=== PATIENT | female | born 1980 | race Caucasian/White ===

== ENCOUNTER 2024-11-13 15:02 | Outpatient (AMB) | payer BC, SELFPAY ==
--- NOTE | 2024-11-13 15:15 | GYNCLNT_ITS ---
"Vital Signs 11/13/24 15:16 Height 1.7 m Height Method Stated Weight 66.395 kg Weight Measurement Method Standing Scale BMI 22.9 BP 111/71 Blood Pressure Source Automatic Cuff Blood Pressure Location Left Upper Arm Position Sitting Respiration 18 Pulse 91 Pulse Source Monitor Temp 96.7 F L Temp Source Oral Pulse Oximetry (%) 98 Oxygen Delivery Method Room Air Allergies/Home Meds Allergies & Medications Allergies No Known Allergies Allergy (Verified 11/13/24 15:17) Medication Reconciliation clomiphene citrate 50 mg tablet (Clomid) 150 mg (3 x 50 mg) PO QDAY 5 days #15 tabs 11/13/24 [Rx] Intake Visit Data Collection New Patient or Established: Established Patient (seen at 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 Cohen Other Relevant History: Difficulty achieving / unknown infertility. Her one successful was due to Clomid/IUI Has had an extensive work up with [facility] CARLOS including normal HSG and Semen analysis. Did not try IVF Seasonal allergies Questionnaires Covid-19 Vaccine Questionnaire Has patient been vacinated for Covid-19 Have you been vacinated for Covid-19: Yes PHQ-9 PHQ-2 Over the last 2 weeks, how often have you been bothered by any of the following problems? 1. Little interest or pleasure in doing things: not at all 2. Feeling down, depressed, or hopeless: not at all Total score: 0 PHQ-9 3. Trouble falling or staying asleep, or sleeping too much: Not at all 4. Feeling tired or having little energy: Not at all 5. Poor appetite or overeating: Not at all 6. Feeling bad about yourself - or that you are a failure or have let yourself or your family down: Not at all 7. Trouble concentrating on things, such as reading the newspaper or watching television: Not at all 8. Moving or speaking so slowly that other people could have noticed? - Or the opposite - being so fidgety or restless that you have been moving around a lot more than usual: not at all 9. Thoughts that you would be better off or of hurting yourself in some way: Not at all Total score: 0 If you checked off any problems, how difficult have these problems made it for you to do your work, take care of things at home, or get along with other people?: not difficult at all Source: Developed by Drs. Liu Talley, Melani Calderon, Roman Duong and colleagues, with an educational anna from [employer]. Depression screen completed yes Social History Living Situation History Marital Status: Lives With: Family Housing: House Housing Other:: Son Gio turning 5. medically retired. Pt works [employer] Tobacco History Smoking Status: Never smoker Second Hand Smoke Exposure: No Alcohol History Alcohol Intake: Current Domestic Abuse History Do You Feel Safe at Home: Yes History of Present Illness HPI Narrative The patient is a 44 y/o who used to see me in [place] who presents for an annual exam. She did not release her medical records to me yet. She has regular menses and no hot flashes or night sweats. She would love to have another baby. They have had difficulty achieving and their son was the result of Clomid/IUI vs injectables/IUI. She has seen many infertility specialists in the past, most recently Dr. Ashok Cohen in the [facility] who did a complete work up and a hysteroscopic septoplasty for a bicornuate uterus. This was after her son was born. Of note, he was full term, just breech. She is willi ng to try Clomid again but does not want to go as far as IVF. Menstrual character: normal Gynecologic pain symptoms: Reports none Menopause concerns/symptoms: Reports none Other pertinent information: Would like to try for Review of Systems Review of Systems Narrative Review of Systems: Normal menses monthly, no hot flashes, night sweats. No pelvic pain or abnormal discharge. No incontinence. Exam General General Appearance: alert, in no apparent distress, comfortable, cooperative, healthy appearing, well developed and well groomed Neck Neck exam: Present normal inspection, full ROM and trachea midline Chest Chest inspection: Present normal inspection and symmetric chest wall rise Exp Chest Breast: bilateral: other (Normal breast exam bilaterally) Resp Respiratory exam: Present normal lung sounds bilaterally Card Cardiovascular exam: Present regular rate, normal rhythm and normal heart sounds Abdominal Abdominal exam: Present soft, normal bowel sounds and scar (well healed pfannenstiel scar) External exam: Present normal external exam Speculum exam: Present normal speculum exam Bimanual exam: Present normal bimanual exam and other (retroverted) Extremities Extremities exam: Present normal inspection and full ROM Psych Psychiatric exam: Present normal affect and normal mood Skin Skin exam: Present warm, dry, intact and normal color Office Procedures OB Clinic LOC & Office Proc's Nursing/Assessment Patient Status: Initial/New Patient OB Clinic Nursing Assessment: Medication Reconciliation, Update PMH in EMR and Vital Signs OB Clinic Coordination of Care: Consent,records obtained, informed consent, Education Simp Pt/Fam and Staff clarify orders Miscellaneous Interventions: Pelvic/Pap Smear Set up New Patient Charge New Patient Point Assignment: 1079 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 Breast exam done and encouraged. She just had a mommogram and has a colonoscopy scheduled all done by her primary care. (2) Infertility associated with anovulation: Status: Acute Assessment and Plan: Check an US. Trial of Clomid 150 mg PO days 3-7. DEAN OF FACULTY: Papsmear Pap Smear Procedure Chaparone in room during procedure?: No Pre-op diagnosis general: Annual wellness exam Post-op diagnosis procedure note: Same Procedure Notes:: Pap with co-testing to HPV performed Papsmear completed: yes"
[2024-11-13 15:16] VITALS: BP 111/71; PULSE 91; RESP 18; TEMP 35.9; O2SAT 98; BMI 22.9
== END 2024-11-13 17:02 | disposition home or self-care (01) ==
LOC: HODSOBC 15:02
PROVIDERS: Supervising Provider Obstetrics & Gynecology; Visit Provider Obstetrics & Gynecology
DX: Z01.419 Encounter for gynecological examination (general) (routine) without abnormal findings (principal); N97.0 Female infertility associated with anovulation
CPT/HCPCS: 99203; Q0091; G0463